=== PATIENT | male | born 1950 | race Caucasian/White ===

== ENCOUNTER 2021-10-21 06:40 | Emergency (ER) | payer MEDICARE, BC ==
[~2021-10-21] VITALS: Ht 182.9 cm; Wt 91.3 kg
--- NOTE | 2021-10-21 07:15 | NUR ---
PATIENT IS W/D WITH GOOD COLOR. EKG IS BEING DONE.
--- NOTE | 2021-10-21 07:37 | NUR ---
SALINE LOCK EST, LABS DRAWN, PATIENT TO XRAY FOR CXR.
[2021-10-21 07:56] LABS: BASOPHILS % (AUTO) 0.9 % (0-1); EOSINOPHILS # (AUTO) 0.1 X10'3 (0-0.9); EOSINOPHILS % (AUTO) 3.5 % (0-6); HEMATOCRIT 42.7 % (42.0-52.0); HEMOGLOBIN 14.4 g/dl (14.0-17.9); LYMPHOCYTES # (AUTO) 0.8 X10'3 (1.1-4.8); LYMPHOCYTES % (AUTO) 20.3 % (21-51); MEAN CORPUSCULAR HEMOGLOBIN 28.4 PG (27.0-31.0); MEAN CORPUSCULAR HGB CONC 33.8 g/dL (33.0-36.5); MEAN CORPUSCULAR VOLUME 84.2 FL (78-98); MEAN PLATELET VOLUME 8.6 FL (7.4-10.4); MONOCYTES # (AUTO) 0.4 X10'3 (0-0.9); MONOCYTES % (AUTO) 11.7 % (2-12); NEUTROPHILS # (AUTO) 2.4 X10'3 (1.8-7.7); NEUTROPHILS % (AUTO) 63.6 % (42-75); PLATELET COUNT 175 X10'3 (140-440); RED BLOOD COUNT 5.07 X10'6 (4.70-6.10); RED CELL DISTRIBUTION WIDTH 13.3 % (11.5-14.5); WHITE BLOOD COUNT 3.8 X10'3 (4.5-11.0)
[2021-10-21 08:15] LABS: ALANINE AMINOTRANSFERASE 40 U/L (12-78); ALBUMIN 3.8 G/DL (3.4-5.0); ALKALINE PHOSPHATASE 64 IU/L (46-116); ANION GAP 8 (8-16); ASPARTATE AMINO TRANSFERASE 29 U/L (10-37); BILIRUBIN,TOTAL 0.7 MG/DL (0.1-1.0); BLOOD UREA NITROGEN 28 MG/DL (7-18); BUN/CREATININE RATIO 30.8 (5.4-32.0); CALCIUM 9.3 MG/DL (8.5-10.1); CHLORIDE 108 MMOL/L (99-107); CREATININE 0.91 MG/DL (0.60-1.10); GLUCOSE 98 MG/DL (70-104); POTASSIUM 3.9 MMOL/L (3.5-5.1); SODIUM 143 MMOL/L (135-145); TOTAL CARBON DIOXIDE 26.9 MMOL/L (24-32); TOTAL PROTEIN 7.5 G/DL (6.4-8.2); eGFR 82 ML/MIN
--- NOTE | 2021-10-21 08:35 | NUR ---
PATIENT IS SITTING UP IN BED. CHEST DISCOMFORT IS NOW A "3." PAIN IN LEFT ARM HAS SUBSIDED. PATIENT IS IN NO DISTRESS.
[2021-10-21] MEDS ORDERED: aspirin 81mg tab.chew PO ONE (08:50)
[2021-10-21 10:51] LABS: C-REACTIVE PROTEIN < 0.05 MG/DL (0.0-0.5)
[2021-10-21 11:33] VITALS: BP 128/72
== END 2021-10-21 11:35 | disposition home or self-care (01) ==
LOC: ER 06:41
DX: R07.89 Other chest pain (principal); R51.9 Headache, unspecified; R42 Dizziness and giddiness; I10 Essential (primary) hypertension; Z86.19 Personal history of other infectious and parasitic diseases; Z98.890 Other specified postprocedural states
CPT/HCPCS: 36415; 71045; 80053; 83880; 84145; 84484; 85025; 85379; 85651; 86140; 93005; 99285

== ENCOUNTER 2022-02-06 08:33 | Outpatient (CLI) | payer MEDICARE, BC | END 2022-02-06 23:59 | disposition home or self-care (01) | LOC: RAD 08:33 | PROVIDERS: ATTEND Internal Medicine Cardiovascular Disease | DX: R42 Dizziness and giddiness (principal) | CPT/HCPCS: 95816 ==

== ENCOUNTER 2022-02-16 07:39 | Outpatient (CLI) | payer MEDICARE, BC ==
[2022-02-16] VITALS (17 sets, daily range): BP systolic 104–154; BP diastolic 61–98
== END 2022-02-16 23:59 | disposition home or self-care (01) ==
LOC: CARD DIAG 07:39
PROVIDERS: ATTEND Internal Medicine Cardiovascular Disease
DX: R42 Dizziness and giddiness (principal); R55 Syncope and collapse
CPT/HCPCS: 93660

== ENCOUNTER 2023-11-17 09:05 | Emergency (ER) | payer MEDICARE, BC ==
[~2023-11-17] VITALS: Ht 182.9 cm; Wt 85.4 kg
[2023-11-17 09:37] LABS: BASOPHILS % (AUTO) 1.1 % (0-1); EOSINOPHILS # (AUTO) 0.1 X10'3 (0-0.9); EOSINOPHILS % (AUTO) 3.1 % (0-6); HEMATOCRIT 43.2 % (42.0-52.0); HEMOGLOBIN 14.6 g/dl (14.0-17.9); MEAN CORPUSCULAR HEMOGLOBIN 28.6 PG (27.0-31.0); MEAN CORPUSCULAR HGB CONC 33.8 g/dL (33.0-36.5); MEAN CORPUSCULAR VOLUME 84.8 FL (78-98); MONOCYTES # (AUTO) 0.4 X10'3 (0-0.9); MONOCYTES % (AUTO) 11.2 % (2-12); NEUTROPHILS # (AUTO) 2.1 X10'3 (1.8-7.7); NEUTROPHILS % (AUTO) 56.6 % (42-75); PLATELET COUNT 170 X10'3 (140-440); RED CELL DISTRIBUTION WIDTH 13.8 % (11.5-14.5); WHITE BLOOD COUNT 3.7 X10'3 (4.5-11.0)
[2023-11-17 10:02] LABS: ALANINE AMINOTRANSFERASE 36 U/L (12-78); ALBUMIN 3.8 G/DL (3.4-5.0); ALKALINE PHOSPHATASE 70 IU/L (46-116); ANION GAP 9 (8-16); ASPARTATE AMINO TRANSFERASE 22 U/L (10-37); BILIRUBIN,TOTAL 0.8 MG/DL (0.1-1.0); BLOOD UREA NITROGEN 18 MG/DL (7-18); CALCIUM 9.5 MG/DL (8.5-10.1); CHLORIDE 107 MMOL/L (99-107); CREATININE 0.82 MG/DL (0.60-1.10); GLUCOSE 96 MG/DL (70-104); POTASSIUM 3.8 MMOL/L (3.5-5.1); PRO BRAIN NATRIURETIC PEPTIDE 45 PG/ML (0-125); SODIUM 146 MMOL/L (135-145); TOTAL CARBON DIOXIDE 29.9 MMOL/L (24-32); TOTAL PROTEIN 7.6 G/DL (6.4-8.2); eCRCL 84 ML/MIN; eGFR > 90 ML/MIN
[2023-11-17] MEDS: mag hydrox/Alum hydrox/simeth 30ml oral suspension PO ONE (10:35)
[2023-11-17] MEDS: sucralfate 1 gm tablet PO ONE (10:35)
[2023-11-17] MEDS ORDERED: iohexol 350MG/ML 100ml bottle IV ONE (11:12)
[2023-11-17] MEDS: normal saline 1000ml 1,000 ML IV ONE (11:26)
[2023-11-17] MEDS: famotidine/PF 10 mg/ml inj IV ONE (12:11)
[2023-11-17] MEDS ORDERED: IBUP-1984 PO (13:06)
[2023-11-17] MEDS ORDERED: OXYC-658 PO (13:06)
[2023-11-17] MEDS: ketorolac trometh inj. 60 MG/2 ML VIAL IM STA (13:27)
[2023-11-17] MEDS: oxyCODONE IR 5mg (immed. release) tablet PO ONE (13:27)
[2023-11-17 13:39] VITALS: BP 158/84; PULSE 68; RESP 17; TEMP 98.6; O2SAT 99
[2023-11-18] MEDS ORDERED: pantoprazole 40 MG vial IV SCH (08:00)
== END 2023-11-17 13:34 | disposition home or self-care (01) ==
LOC: ER 09:05
DX: K21.9 Gastro-esophageal reflux disease without esophagitis (principal); M54.6 Pain in thoracic spine; I71.21 Aneurysm of the ascending aorta, without rupture; I10 Essential (primary) hypertension; Z88.0 Allergy status to penicillin; Z79.899 Other long term (current) drug therapy
CPT/HCPCS: 36415; 71045; 71275; 80053; 83880; 84484; 85025; 93005; 96361; 96372; 96374; 99285; J1885; J3490; J7030; Q9967

== ENCOUNTER 2025-02-03 12:12 | Emergency (ER) | payer MEDICARE, BC ==
[~2025-02-03] VITALS: Ht 182.9 cm; Wt 79.0 kg
[2025-02-03 12:19] VITALS: BP 159/68; PULSE 70; RESP 18; TEMP 97.8; O2SAT 99
--- NOTE | 2025-02-03 13:12 | Physician Documentation ---
History of Present Illness ~ Chief Complaint: Laceration Stated Complaint: L FINGER LAC Time Seen by MD: 12:24 HPI This 74-year-old male presents with a laceration to the tip of his left thumb caused by a serrated knife while cutting bread. Patient is unsure of last tetanus booster. Patient reports the knife was clean and only used to cut bread. Patient reports no other acute symptoms or concerns. Tetanus Within 5 Years: Yes Medication Reconciliation Allergies: Coded Allergies: penicillin V (Verified Allergy, Unknown, 02/03/25) Uncoded Allergies: PCN (Allergy, Unknown, 10/21/21) Past Medical History Past Medical History: Hypertension, Hepatitis B Past Surgical History: orthopedic surgeries Alcohol Use: None Drug Use: none Lives In: Home Review of Systems ROS Laceration to left thumb as stated above in the HPI, otherwise all systems are reviewed and negative. Physical Exam Vital Signs: Temperature: 97.8, Source: Temporal, Heart Rate: 70, Respiratory Rate: 18, BP: 159/68, Pulse Oximetry: 99, Weight: 79.000 Physical Exam VITALS: Reviewed and as above. GENERAL: Alert, nontoxic appearing, no apparent distress. RESPIRATORY: No increased work of breathing, no respiratory distress, speaking in full clear sentences SKIN: 1 cm laceration to the tip of left thumb not involving the fingernail, bleeding controlled Procedures Laceration/Wound Repair Laceration : Location: Left thumb Length (cm): 1 Anesthesia: other (LET) Prep: irrigated by nurse Irrigated w/ Saline (mls): 30 Margins: revised Wound Repaired With: Dermabond Tolerated Procedure Well?: yes, no complications Progress Results/Orders Results/Orders Orders - GILDARDO ROSA Wound Care Orders (02/03/25 13:46) Dermabond To Bedside (02/03/25 13:46) Completed Orders - GILDARDO ROSA Tetanus/Pertuss/Diph Acell/Pf (Boostrix (02/03/25 13:50) Lidocaine/Epi/Tetracaine Top (Lidocaine/ (02/03/25 13:50) Vital Signs 02/03/25 12:19 Temp 97.8 Pulse 70 Resp 18 B/P (MAP) 159/68 Pulse Ox 99 Medical Decision Making Findings This 74-year-old male presented with a 1 cm laceration to the tip of his left thumb caused by a serrated knife while cutting bread, bleeding was controlled prior to arrival and the laceration was well approximated and amenable to poor repair with skin adhesive, area was anesthetized with L.E.T. topical anesthetic prior to skin adhesive application with good anesthesia, area was irrigated and no foreign body observed, the wound was closed with no complications. The area was dressed with nursing with a bulky protective dressing to the tip of the finger, remainder of physical exam was benign and patient provided home care instructions and return to care precautions which he verbalized understanding off. Differential Dx:Considerations: Include: Abrasion, Avulsion, Hematoma, Retained foreign body Departure Time of Disposition: 14:29 Disposition: 01 HOME / SELF CARE / HOMELESS Impression: Primary Impression: Laceration Condition: Improved Discharge Instructions: Laceration Care (Skin Glue) Additional Instructions: Keep the area clean and dry, do not use ointments as to the area as this will dissolve the skin glue prematurely, the skin glue will fall off in the next week or two. Keep the area covered and protected from further injury. Please follow up with your primary care provider in the next few days. Please return to the emergency department for any new or worsening concerning symptoms including but not limited to increased pain or swelling to the area, signs of infection, or a fever. Referrals: NO PRIMARY CARE PROVIDER (PCP) Education Educated: Patient Educated regarding: diagnosis, treatment, prognosis, need for follow up Signature Scribe Signature: No scribe Attestation: The note accurately reflects work and decisions made by me.KEVIN Vincent 02/03/25 22:10 GILDARDO ROSA Feb 03, 2025 13:12
[2025-02-03] MEDS: LIDOcaine/epinephrine/tetracaine TOPICAL sol 3 ML syringe TOP ONE (14:00)
[2025-02-03] MEDS: TETanus/Pertussis (Acell)/Diphther VAC/PF (Tdap-Adult) 0.5ml syringe IMVAC ONE (14:06)
== END 2025-02-03 15:18 | disposition home or self-care (01) ==
LOC: ER 12:12
DX: S61.012A Laceration without foreign body of left thumb without damage to nail, initial encounter (principal); I10 Essential (primary) hypertension; Z88.0 Allergy status to penicillin; W26.0XXA Contact with knife, initial encounter; Y93.89 Activity, other specified; Y92.89 Other specified places as the place of occurrence of the external cause; Y99.8 Other external cause status
CPT/HCPCS: 12001; 90715; 99283; A6258; A6402; G0008; J3490; Z7610; 90471; A6449